=== PATIENT | male | born 1965 | race Caucasian/White ===

== ENCOUNTER → 2020-04-30 09:33 | Outpatient (CLI) | payer OTHER, SELFPAY ==
--- NOTE | 2020-04-30 09:36 | EKG12_ITS ---
Test Reason : PREOP Blood Pressure : / mmHG Vent. Rate : 060 BPM Atrial Rate : 060 BPM P-R Int : 124 ms QRS Dur : 094 ms QT Int : 418 ms P-R-T Axes : 010 038 013 degrees QTc Int : 418 ms Normal sinus rhythm Normal ECG Confirmed by LEEANNA JHAVERI, NIMA ([id number]), graphics editor CUCA KAMARA ([id number]) on 05/01/2020 8:44:41 AM Referred By: Deondre Merritt Confirmed By:NIMA DURÁN MD
== END ==
PROVIDERS: PCP Family Medicine; Referring Provider Orthopaedic Surgery; Visit Provider Orthopaedic Surgery
DX: Z01.818 Encounter for other preprocedural examination (principal); Z11.59 Encounter for screening for other viral diseases
CPT/HCPCS: 87635; 93005; C9803; U0005; U0003

== ENCOUNTER → 2020-05-05 16:38 | Outpatient (CLI) | payer OTHER, SELFPAY ==
[2020-05-05 17:07] LABS: Hemoglobin 15.3 g/dL (13.0-16.5); Mean Corp Hgb Conc 33.3 g/dL (32-36); Mean Corpuscular Hgb 26.9 pg (27.0-32.0); Mean Platelet Vol. 9.5 fl (6.2-12.0); Platelet Count 292 K/mm3 (150-450); RBC Distribution Width CV 12.7 % (11.6-14.6); RBC Distribution Width SD 37.5 fl (35.1-43.9); Red Blood Count 5.68 M/mm3 (4.6-6.2); White Blood Count 8.5 K/mm3 (4.4-11.0)
[2020-05-05 17:52] LABS: Anion Gap 3 (5-15); BUN 21 mg/dL (7-18); BUN/Creat Ratio 19.6 RATIO (10-20); Calcium,Total 9.3 mg/dL (8.5-10.1); Chloride 106 mmol/L (98-107); Creatinine, Serum 1.07 mg/dL (0.70-1.30); EST Glomerular Filtration Rate 76 mL/min (>60); Est Glom Filt Rate - Afr Amer 92 mL/min (>60); Glucose 87 mg/dL (74-106); Potassium 3.8 mmol/L (3.5-5.1); Sodium Level 139 mmol/L (136-145)
== END ==
PROVIDERS: PCP Family Medicine; Referring Provider Orthopaedic Surgery; Visit Provider Orthopaedic Surgery
DX: Z01.818 Encounter for other preprocedural examination (principal)
CPT/HCPCS: 36415; 80048; 85027

== ENCOUNTER → 2021-11-24 | Outpatient (CLI) | payer BC, SELFPAY ==
[2021-11-24 12:33] LABS: PSA,Total - Annual Screen 1.54 ng/mL (0.00-4.00)
== END | disposition home or self-care (01) ==
PROVIDERS: PCP Family Medicine; Visit Provider Family Medicine
DX: Z00.00 Encounter for general adult medical examination without abnormal findings (principal)
CPT/HCPCS: 36415; 84153; G0103

== ENCOUNTER → 2023-01-27 | Outpatient (CLI) | payer BC, SELFPAY ==
[2023-01-27 18:23] LABS: Cholesterol 175 mg/dL (200); High Density Lipoprotein 42 mg/dL; PSA,Total - Annual Screen 1.38 ng/mL (0.00-4.00); Triglycerides 148 mg/dL; Very Low Density Lipoprotein 30 mg/dL (5-40)
== END | disposition home or self-care (01) ==
LOC: MTLAB 16:57
PROVIDERS: PCP Family Medicine; Referring Provider Family Medicine; Visit Provider Family Medicine
DX: Z00.00 Encounter for general adult medical examination without abnormal findings (principal); Z12.5 Encounter for screening for malignant neoplasm of prostate
CPT/HCPCS: 36415; 80061; 84153; G0103

== ENCOUNTER 2023-11-24 08:54 | Day surgery (SDC) | payer BC, SELFPAY ==
[2023-11-24] VITALS (7 sets, daily range): BP systolic 100–137; BP diastolic 71–85; PULSE 56–69; RESP 16–20; TEMP 36.6–36.9; O2SAT 95–100; BMI 27.1
[2023-11-24] MEDS: Lactated Ringers 1,000 ML 15 ML IV (09:12)
--- NOTE | 2023-11-24 09:32 | PCM.PRE.AN2 ---
ASA Classification* ASA Classification ASA Classification: 2 Assessment & Plan Anesthesia* Anesthesia Assessment Anesthesia Assessment: Discussed sedation and/or anesthesia options, risks, benefits, and alternatives with patient/parents/legal guardian/POA. Questions invited. The patient/parents/legal guardian/POA seems to understand and agrees to proceed with anesthesia plan. Reviewed the physical assessment, medical history, allergy history and patient home medications list prior to surgery/procedure/anesthetic and documented any changes. Performed airway and anesthesia risk assessments. Anesthesia Type Anesthesia Type: MAC History Source History Obtained from:: Patient and Chart Anesthesia Focused Assessment* Temperature: 97.9 F Pulse Rate: 69 Blood Pressure: 137/85 Respiratory Rate: 16 Pulse Ox: 100 Oxygen Delivery Method: Room Air Airway Assessment Mouth opens: >3 cm Mallampati Score: III Teeth Condition: Intact Neck Range of motion (ROM): Full ROM Focused Labs Anesthesia Preop lab: CBC WBC 8.5 K/mm3 (4.4-11.0) 05/05/20 16:42 RBC 5.68 M/mm3 (4.6-6.2) 05/05/20 16:42 Hgb 15.3 g/dL (13.0-16.5) 05/05/20 16:42 Hct 46.0 % (40-54) 05/05/20 16:42 Plt Count 292 K/mm3 (150-450) 05/05/20 16:42 CHEMISTRY Potassium 3.8 mmol/L (3.5-5.1) 05/05/20 16:42 Sodium 139 mmol/L (136-145) 05/05/20 16:42 BUN 21 mg/dL (7-18) H 05/05/20 16:42 Creatinine 1.07 mg/dL (0.70-1.30) 05/05/20 16:42 Glucose 87 mg/dL (74-106) 05/05/20 16:42 COAG Pre-Assessment Diagnosis/Proposed Procedure Planned Operative Procedure(s): CSCOPE OA Anesthesia History Anesthesia History - lay out technician: Anesthesia History - lay out technician Hx Hospitalization No 11/21/23 11:44 Any Problems With Anesthesia Yes: N,V 11/21/23 11:44 Cholinesterase deficiency No 11/21/23 11:44 You/Your Family Experience No 11/21/23 11:44 fever (hyperthermia) with Relationship Recent Exposure to Contagious No 11/24/23 09:10 Disease Does patient have nerve No 11/21/23 11:44 stimulator Patient instructed to have device shut off --Does patient have Pacemaker No 11/24/23 09:10 or ICD? When Was Last Pacemaker Check QUESTION #4 FULL TEXT: You/Your Family Experience fever (hyperthermia) with Anesthesia Last Oral Intake Last Oral intake: Last Oral Intake NPO since Meds taken in AM with sips of water? Meds patient instructed to take am of surgery Any additional information?: Yes NPO since: 06:15 (Patient finished prep at 615 A.m.) PONV PONV - lay out technician: PONV - lay out technician Female No 11/21/23 11:44 HX of Motion Sickness Yes 11/21/23 11:44 HX of N/V After Surgery Yes 11/21/23 11:44 Non-Smoker Yes 11/21/23 11:44 Duration of Surgery greater No 11/21/23 11:44 than 60 minutes Number of Risk Factors 3 11/21/23 11:44 PONV Score Moderate Risk 11/21/23 11:44 Height & Weight Height & Weight: Anesthesia: Height & Weight Height 5 ft 11 in 11/24/23 09:10 Weight: 88.1 kg 11/24/23 09:10 Body Mass Index (BMI) 27.1 11/24/23 09:10 Respiratory Assessment Respiratory Assessment - lay out technician: Respiratory Tract Infection Hx - lay out technician Hx Respiratory Tract Infection No 11/21/23 11:44 STOP Sleep Apnea STOP Sleep Apnea - lay out technician: STOP Sleep Apnea - lay out technician Hx Hypertension No 11/21/23 11:44 Hx Sleep Apnea No 11/21/23 11:44 CPAP BIPAP Do you snore loudly (louder No 11/21/23 11:44 than talking or can be heard Do you often feel tired/ Yes 11/21/23 11:44 fatigued/ sleepy during daytime? Has anyone observed you stop No 11/21/23 11:44 breathing during sleep? STOP Results Negative 11/21/23 11:44 QUESTION #5 FULL TEXT : Do you snore loudly (louder than talking or can be heard through closed doors)? 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 Specify any problems Hx of Preganancy in last 3 N/A 11/21/23 11:44 Months Nurse Filling Out Transfusion DSCHRIBER 11/21/23 11:44 & Questions: Date: 11/21/23 11/21/23 11:44 Time: 11:46 11/21/23 11:44 Patient unable to answer at this time (ie. confused, unrespo /Reproduction History /Reproductive History - lay out technician: /Reproductive Hx- lay out technician Hx Now No 11/21/23 11:44 Gestational Age (in weeks): EDC: Hx Hx Para Hx Section SAB No 11/21/23 11:44 Active Medications Active Medications: Current Medications Generic Name Dose Route Start Last Admin Trade Name Freq PRN Reason Stop Dose Admin Lactated Ringer's 1,000 mls @ 15 mls/hr 11/24/23 09:00 11/24/23 09:12 IV 15 mls/hr .Q48H RACHAEL Administration PFSH Medical History (Updated 11/21/23 @ 11:52 by Allie Seay) Wears glasses Alcohol use Arthritis Restless legs Non-smoker Helicobacter pylori (H. pylori) History of stress test Hx of fracture of tibia Home Medications ?Medication ?Instructions ?Recorded ?Last Taken ?Type NK 11/20/23 Unknown History Allergy/AdvReac Type Severity Reaction Status Date / Time No Known Allergies Allergy Verified 11/24/23 09:09 Family History (Updated 11/20/23 @ 16:23 by Nanda Lopes) Sister Colon polyps Mother Bile duct cancer Surgical History (Updated 11/21/23 @ 11:52 by Allie Seay) Hx of esophagogastroduodenoscopy History of carpal tunnel surgery of right wrist History of carpal tunnel surgery of left wrist History of repair of hip fracture History of arthroscopic knee surgery Social History (Updated 11/20/23 @ 16:24 by Nanda Lopes) household members: spouse and children current occupational status: employed current occupation: [employer] Smoking Status: Never smoker alcohol intake: current alcohol intake frequency: holidays/special occasions only substance use type: does not use Review of Systems (Anesthesia) ROS Narrative System reviewed and no additional complaints, except as documented.
--- NOTE | 2023-11-24 09:36 | H&P.OPEN ---
HPI - General HPI Narrative DIAMANTE RICHARDSON, is a 57 M who presents For screening colonoscopy. Patient has never had a colonoscopy in the past. He denies abdominal pain or blood in the stool. He has no family history of colon cancer. [facility] Medical History (Updated 11/21/23 @ 11:52 by Allie Seay) Wears glasses Alcohol use Arthritis Restless legs Non-smoker Helicobacter pylori (H. pylori) History of stress test Hx of fracture of tibia Home Medications ?Medication ?Instructions ?Recorded ?Last Taken ?Type NK 11/20/23 Unknown History Allergy/AdvReac Type Severity Reaction Status Date / Time No Known Allergies Allergy Verified 11/24/23 09:09 Family History (Updated 11/20/23 @ 16:23 by Nanda Lopes) Sister Colon polyps Mother Bile duct cancer Surgical History (Updated 11/21/23 @ 11:52 by Allie Seay) Hx of esophagogastroduodenoscopy History of carpal tunnel surgery of right wrist History of carpal tunnel surgery of left wrist History of repair of hip fracture History of arthroscopic knee surgery Social History (Updated 11/20/23 @ 16:24 by Nanda Lopes) household members: spouse and children current occupational status: employed current occupation: [employer] Smoking Status: Never smoker alcohol intake: current alcohol intake frequency: holidays/special occasions only substance use type: does not use Past Medical/Surgical History Planned Operation Planned Operative Procedure(s): CSCOPE OA Previous Hospitalizations/Surgeries HX Hospitalizations: No Any Problems With Anesthesia: Yes (N,V) You/Your Family Experience Fever (Hyperthermia) With Anes: No Cholinesterase deficiency: No Cardiovascular Hx Hypertension: No Respiratory Hx Sleep Apnea: No Hx Respiratory Tract Infection/Cold (presently): No Do You Snore Loudly (louder than talking or can be heard): No Do You Often Feel Tired/ Fatigued/ Sleepy Dring Daytime?: Yes Has Anyone Observed You Stop Breathing During Sleep?: No Result (for STOP score): Negative Smoking Status: Never smoker Neurological Does patient have nerve stimulator: No Reproduction : No Miscellaneous Recent Exposure to Contagious Disease: No Allergies No Known Allergies Allergy (Verified 11/24/23 09:09) Discharge Is Pt Admitted From a Half-Way, or a Senior Care: No After D/C, Where Do you Plan to Go: Return Home Vital Signs Vital Signs Vital Signs: 11/24/23 09:10 11/24/23 09:10 Temperature 97.9 F Temperature Source Temporal Pulse Rate 69 Respiratory Rate 16 Respiratory Pattern Normal Blood Pressure 137/85 H Blood Pressure Mean 102 Blood Pressure Source Monitor Blood Pressure Position Semi-Fowlers Blood Pressure Location Left Arm Pulse Ox 100 Oxygen Delivery Method Room Air Weight Weight: 194 lb 3.636 oz Body Mass Index (BMI) 27.1 Surgery Risks - Colonoscopy Risks Include but are not Limited To: Risks include but are not limited to: Bleeding, perforation requiring further surgery, inability to complete colonoscopy requiring barium enema.
--- NOTE | 2023-11-24 09:37 | H&P.OPEN ---
HPI - General HPI Narrative DIAMANTE RICHARDSON, is a 57 M who presents For screening colonoscopy. The patient has never had a colonoscopy in the past. He denies abdominal pain or blood in the stool. He has no family history of colon cancer. [facility] Medical History (Updated 11/21/23 @ 11:52 by Allie Seay) Wears glasses Alcohol use Arthritis Restless legs Non-smoker Helicobacter pylori (H. pylori) History of stress test Hx of fracture of tibia Home Medications ?Medication ?Instructions ?Recorded ?Last Taken ?Type NK 11/20/23 Unknown History Allergy/AdvReac Type Severity Reaction Status Date / Time No Known Allergies Allergy Verified 11/24/23 09:09 Family History (Updated 11/20/23 @ 16:23 by Nanda Lopes) Sister Colon polyps Mother Bile duct cancer Surgical History (Updated 11/21/23 @ 11:52 by Allie Seay) Hx of esophagogastroduodenoscopy History of carpal tunnel surgery of right wrist History of carpal tunnel surgery of left wrist History of repair of hip fracture History of arthroscopic knee surgery Social History (Updated 11/20/23 @ 16:24 by Nanda Lopes) household members: spouse and children current occupational status: employed current occupation: [employer] Smoking Status: Never smoker alcohol intake: current alcohol intake frequency: holidays/special occasions only substance use type: does not use Past Medical/Surgical History Planned Operation Planned Operative Procedure(s): CSCOPE OA Previous Hospitalizations/Surgeries HX Hospitalizations: No Any Problems With Anesthesia: Yes (N,V) You/Your Family Experience Fever (Hyperthermia) With Anes: No Cholinesterase deficiency: No Cardiovascular Hx Hypertension: No Respiratory Hx Sleep Apnea: No Hx Respiratory Tract Infection/Cold (presently): No Do You Snore Loudly (louder than talking or can be heard): No Do You Often Feel Tired/ Fatigued/ Sleepy Dring Daytime?: Yes Has Anyone Observed You Stop Breathing During Sleep?: No Result (for STOP score): Negative Smoking Status: Never smoker Neurological Does patient have nerve stimulator: No Reproduction : No Miscellaneous Recent Exposure to Contagious Disease: No Allergies No Known Allergies Allergy (Verified 11/24/23 09:09) Discharge Is Pt Admitted From a [facility], or a Penitentiary: No After D/C, Where Do you Plan to Go: Return Home Vital Signs Vital Signs Vital Signs: 11/24/23 09:10 11/24/23 09:10 Temperature 97.9 F Temperature Source Temporal Pulse Rate 69 Respiratory Rate 16 Respiratory Pattern Normal Blood Pressure 137/85 H Blood Pressure Mean 102 Blood Pressure Source Monitor Blood Pressure Position Semi-Fowlers Blood Pressure Location Left Arm Pulse Ox 100 Oxygen Delivery Method Room Air Weight Weight: 194 lb 3.636 oz Body Mass Index (BMI) 27.1 Physical Exam Const alert and oriented x3 HEENT normocephalic Eyes PERRL Resp normal respiratory effort and normal air movement Cardio regular rate and regular rhythm GI soft to palpation, non-tender and non-distended Extremity normal to inspection Assessment & Plan Assessment/Plan (1) Encounter for screening for malignant neoplasm of colon: PLAN: I explained endoscopy in detail to the patient. I explained the risks including but not limited to stroke or heart attack with anesthesia, perforation of the GI tract, bleeding, infection. I explained that any of these could necessitate further emergency surgery. The patient understands and all questions were answered sufficiently. The patient wishes to proceed with procedure. Km Guzman MD Pager: [facility] [address] [place] [address], [address] [place] [address] Office: Surgery Risks - Colonoscopy Risks Include but are not Limited To: Risks include but are not limited to: Bleeding, perforation requiring further surgery, inability to complete colonoscopy requiring barium enema.
--- NOTE | 2023-11-24 10:01 | PCM.POST.ANE ---
Anesthesia: Postop Eval I Current Vital Signs Temperature: 98.5 F Pulse Rate: 61 Blood Pressure: 100/74 Respiratory Rate: 20 Pulse Ox: 96 Assessment Airway patent: Yes Spontaneous unlabored respirations: Yes nausea: No Vomiting: No Anesthesia Complication: No Fluid Hydration Crystalloid volume administer (ml): 500 Total IV fluid infused: 500 Progress Note Anesthesia document: Postop Eval 1 completed: Yes
--- NOTE | 2023-11-24 10:02 | OP.COLON_ITS ---
Patient Name: Deondre Sparrow Procedure Date: 11/24/2023 9:39 AM Date of : 1965 Age: 57 Procedure: Colonoscopy Indications: Screening for colorectal malignant neoplasm Providers: Km Guzman MD Referring MD: Km Guzman MD Medicines: Propofol per Anesthesia Patient Profile: Last Colonoscopy: none. The patient's first colonoscopy is today. Complications: No immediate complications. Procedure: Pre-Anesthesia Assessment: - Prior to the procedure, a History and Physical was performed, and patient medications and allergies were reviewed. The patient's tolerance of previous anesthesia was also reviewed. The risks and benefits of the procedure and the sedation options and risks were discussed with the patient. All questions were answered, and informed consent was obtained. Prior Anticoagulants: The patient has taken no anticoagulant or antiplatelet agents. After reviewing the risks and benefits, the patient was deemed in satisfactory condition to undergo the procedure. After I obtained informed consent, the scope was passed under direct vision. Throughout the procedure, the patient's blood pressure, pulse, and oxygen saturations were monitored continuously. The pediatric colonoscope was introduced through the anus and advanced to the cecum, identified by appendiceal orifice and ileocecal valve. The colonoscopy was performed without difficulty. The patient tolerated the procedure well. The quality of the bowel preparation was good. The ileocecal valve, appendiceal orifice, and rectum were photographed. Scope In: 9:45:39 AM Scope Withdrawal Time 0 hours 5 minutes 46 seconds Scope Out: 9:58:23 AM Total Procedure Duration Time 0 hours 12 minutes 44 seconds Findings: The entire examined colon appeared normal on direct and retroflexion views. Impression: - The entire examined colon is normal on direct and retroflexion views. - No specimens collected. Recommendation: - Discharge patient to home. - Resume previous diet. - Continue present medications. - Repeat colonoscopy in 10 years for screening purposes. Procedure Code(s): --- Professional --- 35237, Colonoscopy, flexible; diagnostic, including collection of specimen(s) by brushing or washing, when performed (separate procedure) Diagnosis Code(s): --- Professional --- Z12.11, Encounter for screening for malignant neoplasm of colon CPT copyright 2021 [employer]. All rights reserved. The codes documented in this report are preliminary and upon milled rubber tender review may be revised to meet current compliance requirements. Km Guzman MD 11/24/2023 10:02:25 AM This report has been signed electronically. Number of Addenda: 0 Note Initiated On: 11/24/2023 9:39 AM
--- NOTE | 2023-11-24 10:02 | OP.CCLET_ITS ---
11/24/2023 Vinita Newberry [address] [place] [address] Re : Colonoscopy procedure for Deondre Sparrow Dear Dr. Newberry This procedure was performed on Friday, November 24, 2023. My impressions and recommendations are as follows: Impressions : - The entire examined colon is normal on direct and retroflexion views. - No specimens collected. Recommendations : - Discharge patient to home. - Resume previous diet. - Continue present medications. - Repeat colonoscopy in 10 years for screening purposes. My findings are described in the full procedure note, which is enclosed. If I can be of further assistance, please feel free to contact me at Doctor phone number(s): , Work: . Sincerely, Km Guzman MD 11/24/2023 10:02:25 AM This report has been signed electronically.
--- NOTE | 2023-11-24 12:57 | POSTOPAN2_ITS ---
Anesthesia Postop Eval I Sum Postop Eval Completion status Anesthesia document: Postop Eval 1 completed: Yes Anesthesia Postop Eval I Summary Anesthesia Postop Eval I Summary: Anesthesia Postop Eval I: Assessment Summary Airway patent Yes 11/24/23 10:04 SOFT METALS HAND ENGRAVER.CSIR Spontaneous unlabored Yes 11/24/23 10:04 SOFT METALS HAND ENGRAVER.CSIR respirations Mental status nausea No 11/24/23 10:04 SOFT METALS HAND ENGRAVER.CSIR Vomiting No 11/24/23 10:04 SOFT METALS HAND ENGRAVER.CSIR Anesthesia Postop Eval I: Fluid Summary Crystalloid volume administer 500 11/24/23 10:04 SOFT METALS HAND ENGRAVER.CSIR (ml) Colloids volume administered ( ml) Blood Product volume administered (ml) Total IV fluid infused 500 11/24/23 10:04 SOFT METALS HAND ENGRAVER.CSIR Anesthesia Postop Eval I: Summary Notes Anesthesia Complication No 11/24/23 10:04 SOFT METALS HAND ENGRAVER.CSIR Anesthesia Complication Comment: Post-operative progress note Anesthesia: Postop Eval II Evaluation Mental status: Awake and Calm Pain Level: 0 nausea: No Vomiting: No Complications Anesthesia Complication: No
--- NOTE | 2023-11-24 12:57 | PCM.POSTANE2 ---
Anesthesia Postop Eval I Sum Postop Eval Completion status Anesthesia document: Postop Eval 1 completed: Yes Anesthesia Postop Eval I Summary Anesthesia Postop Eval I Summary: Anesthesia Postop Eval I: Assessment Summary Airway patent Yes 11/24/23 10:04 MARKETING PROPOSAL COORDINATOR.CSIR Spontaneous unlabored Yes 11/24/23 10:04 MARKETING PROPOSAL COORDINATOR.CSIR respirations Mental status nausea No 11/24/23 10:04 MARKETING PROPOSAL COORDINATOR.CSIR Vomiting No 11/24/23 10:04 MARKETING PROPOSAL COORDINATOR.CSIR Anesthesia Postop Eval I: Fluid Summary Crystalloid volume administer 500 11/24/23 10:04 MARKETING PROPOSAL COORDINATOR.CSIR (ml) Colloids volume administered ( ml) Blood Product volume administered (ml) Total IV fluid infused 500 11/24/23 10:04 MARKETING PROPOSAL COORDINATOR.CSIR Anesthesia Postop Eval I: Summary Notes Anesthesia Complication No 11/24/23 10:04 MARKETING PROPOSAL COORDINATOR.CSIR Anesthesia Complication Comment: Post-operative progress note Anesthesia: Postop Eval II Evaluation Mental status: Awake and Calm Pain Level: 0 nausea: No Vomiting: No Complications Anesthesia Complication: No
== END 2023-11-24 10:46 | disposition home or self-care (01) ==
LOC: EN 08:55 → AC 08:56
PROVIDERS: PCP Family Medicine; Referring Provider Family Medicine; Visit Provider Surgery
PROC: 0DJD8ZZ Inspection of Lower Intestinal Tract, Via Natural or Artificial Opening Endoscopic (ICD-10-PCS; CPT 45378; principal; 2023-11-24 09:55)
DX: Z12.11 Encounter for screening for malignant neoplasm of colon (principal); Z80.0 Family history of malignant neoplasm of digestive organs
CPT/HCPCS: 45378; J7120; J2405

== ENCOUNTER → 2024-11-14 | Outpatient (CLI) | payer BC, SELFPAY ==
[2024-11-14 10:49] LABS: Cholesterol 189 mg/dL (<=200); Low Density Lipoprotein Calc. 127 mg/dL; PSA,Total - Annual Screen 1.02 ng/mL (0.02-4.00); Triglycerides 79 mg/dL; Very Low Density Lipoprotein 16 mg/dL (5-40); cholesterol:hdl ratio screen 4.07
== END | disposition home or self-care (01) ==
LOC: MFPLAB 09:10
DX: Z13.220 Encounter for screening for lipoid disorders (principal); Z13.1 Encounter for screening for diabetes mellitus; Z12.5 Encounter for screening for malignant neoplasm of prostate
CPT/HCPCS: 36415; 80061; 83036; 84153; G0103